=== PATIENT | male | born 1995 | race Caucasian/White ===

== ENCOUNTER 2022-03-05 04:01 | Emergency (ER) | payer OTHER, SELFPAY ==
--- NOTE | ~2022-03-05 | XR_ITS ---
EXAMINATION: XR HAND, RIGHT CLINICAL INFORMATION: Pain COMPARISON: None TECHNIQUE: PA, lateral, and oblique views of the right hand. FINDINGS: Osseous alignment is anatomic. No acute fracture is seen. No significant focal soft tissue abnormality identified. XR/XR hand RT min 3V IMPRESSION: No acute findings identified.
[2022-03-05 04:23] VITALS: BP 134/75; PULSE 75; RESP 20; O2SAT 97; BMI 38.0
--- NOTE | 2022-03-05 06:44 | ED.EXTPRO ---
HPI - Extremity Problem General Chief complaint: Extremity Injury, Upper Stated complaint: x ray needed Time Seen by Provider: 03/05/22 06:44 Source: patient Mode of arrival: ambulatory Limitations: no limitations History of Present Illness HPI Narrative: 27 year old male presents to the ED after hitting a door frame yesterday morning. He denies any other injuries. IT continued to hurt and was with flexion so he wanted to be seen. Related Data Allergies Allergy/AdvReac Type Severity Reaction Status Date / Time No Known Allergies Allergy Verified 03/05/22 04:27 Review of Systems Review of Systems: Review of systems: General:? Patient denies any fever chills recent illness or falls Musculoskeletal: Denies back pain or body aches or other injuries HEENT: denies headache, runny nose, ear pain Respiratory: denies shortness of breath, cough Cardiovascular: no chest pain or palpitations : denies dysuria, frequency Abdomen: no nausea vomiting denies abdominal pain? Extremities: no swelling, 5th knuckle pain Skin: no diaphoresis Yes all other systems are reviewed and are negative PMFSH Past Medical History Attestation statement: The following information was validated with the patient. Social History Social History Advance Directives: No Advance Directives Information Provided: Yes Physical Exam Vital Signs: Vital Signs: Last Vital Signs Pulse 75 03/05/22 04:23 Resp 20 03/05/22 04:23 BP 134/75 03/05/22 04:23 Pulse Ox 97 03/05/22 04:23 O2 Del Method 03/05/22 04:23 BMI result Body Mass Index 38.0 General: Well-appearing well-nourished in no signs of distress Extremities: Focused exam on the hand redness and tenderness to 5th digit. Full range of motion no pain to 5th metacarpal or phalanx no anatomical snuffbox tenderness Skin: Dry warm no rashes MDM - Extremity (Nontraumatic) MDM Narrative Medical decision making narrative: XR is unremarkable. Patient will go home with cold compresses and treat with tylenol and ibuprofen. Discharge Plan Discharge Clinical Impression: Contusion of hand, right Patient Disposition: Home, Self-Care Instructions: Contusion in Adults (ED) Additional Instructions: Please call to follow up with your doctor. If you have any other concerns please return to the ED.
== END 2022-03-05 06:59 | disposition home or self-care (01) ==
PROVIDERS: Emergency Provider Student in an Organized Health Care Education/Training Program
DX: S60.221A Contusion of right hand, initial encounter (principal); M79.641 Pain in right hand; Y29.XXXA Contact with blunt object, undetermined intent, initial encounter; Y93.9 Activity, unspecified; Y92.9 Unspecified place or not applicable; Y99.9 Unspecified external cause status
CPT/HCPCS: 73130; 99281; 99283

== ENCOUNTER → 2023-01-02 09:12 | Outpatient (REF) | payer OTHER, SELFPAY ==
--- NOTE | 2023-01-02 09:16 | ECG_ITS ---
Test Reason : check up Blood Pressure : / mmHG Vent. Rate : 071 BPM Atrial Rate : 071 BPM P-R Int : 132 ms QRS Dur : 094 ms QT Int : 380 ms P-R-T Axes : 032 054 044 degrees QTc Int : 412 ms Normal sinus rhythm Normal ECG No previous ECGs available Referred By: Ely Eaton Electronically Signed By:David Lozano
[2023-01-02 09:29] LABS: MANUAL DIFF FLAG NO
[2023-01-02 10:20] LABS: Basophils Percent Auto 0.3 % (0-2); Eosinophils Absolute Auto 0.1 X10*3/uL (0.0-0.4); Eosinophils Percent Auto 1.7 % (0-4); Hematocrit 45.3 % (42.0-52.0); Hemoglobin 15.2 g/dl (14.0-18.0); Imm Gran Abs Auto 0.01 X10*3/uL (0.00-0.03); Imm Gran Pct Auto 0.2 % (0.0-0.4); Lymphocytes Absolute Auto 1.9 X10*3/uL (1.2-4.9); Lymphocytes Percent Auto 33.3 % (20-40); Mean Corpuscular HGB Conc 33.6 g/dl (31.0-36.0); Mean Corpuscular Hemoglobin 28.5 pg (27.0-33.0); Monocytes Absolute Auto 0.6 X10*3/uL (0.1-1.2); Monocytes Percent Auto 9.5 % (2-11); Neutrophils Absolute Auto 3.2 x10*3/uL (2.0-8.3); Platelet Count 223 X10*3/uL (160-400); Red Blood Count 5.33 X10*6/uL (4.60-5.80); Red Cell Distribution Width 13.1 % (11.0-16.0); White Blood Count 5.8 X10*3/uL (4.8-10.8)
[2023-01-02 11:32] LABS: Alanine Aminotransferase 42 U/L (0-40); Albumin Level 4.9 g/dL (3.5-5.0); Alkaline Phosphatase 80 U/L (39-117); Anion Gap 13 (12-20); Aspartate Amino Transferase 23 U/L (5-37); Bilirubin Total 0.7 mg/dL (0.0-1.0); Blood Urea Nitrogen 14 mg/dL (9-16); Calcium 10.1 mg/dL (8.4-10.2); Carbon Dioxide 30 mmol/L (22-29); Chloride 103 mmol/L (96-108); Cholesterol 230 mg/dL; Estimated Glomerular Filt Rate > 60; Glucose Fasting 99 mg/dL (60-99); HDL Cholesterol 37 mg/dL; LDL Cholesterol Calculated 146 mg/dl; Potassium 4.7 mmol/L (3.3-5.1); Sodium 141 mmol/L (135-145); Total Protein 7.7 g/dL (6.5-8.0); Triglycerides 239 mg/dL
[2023-01-02 11:47] LABS: Folate 9.1 ng/mL (> or = 4.0); TSH reflex Free T4 2.08 uIU/mL (0.32-4.0); Vitamin B12 411 pg/mL (200-900); Vitamin D 25-OH Total 14.9 ng/mL (>30)
== END ==
LOC: HO.CARD 09:12
PROVIDERS: PCP Nurse Practitioner Family; Visit Provider Nurse Practitioner Family
DX: R07.9 Chest pain, unspecified (principal); Z76.89 Persons encountering health services in other specified circumstances; E55.9 Vitamin D deficiency, unspecified; F41.1 Generalized anxiety disorder; F32.A Depression, unspecified; E78.1 Pure hyperglyceridemia
CPT/HCPCS: 36415; 80053; 80061; 82306; 82607; 82746; 84443; 85025; 93005

== ENCOUNTER 2023-03-11 13:32 | Outpatient (AMB) | payer OTHER, SELFPAY ==
[2023-03-11 13:36] VITALS: BP 110/78; PULSE 97; O2SAT 96; BMI 36.5
--- NOTE | 2023-03-11 13:36 | MHC.PC.OV ---
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 Accompanied by: Self / Same As Patient Allergies No Known Allergies Allergy (Verified 03/11/23 13:36) Tobacco use date assessed: 03/11/23 Dental Screening Dental Screen Date: 03/11/23 Did you have a dental visit in the last 12 months?: No Did you have a dental problem in the last 6 months where you did not have access to dental care?: No Was dental information given to patient?: Patient has dentist HPI HPI Comments History of Present Illness Details 28-year-old male past medical history significant for hypertriglyceridemia, GERD, low vitamin-D, depression, anxiety, PTSD and corneal erosion of right eye follow-up by Dr. Pfeiffer in [place]. 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 Gutierrez. Patient states under MAC. Denies any previous complications to anesthesia. Denies chest pain, palpitations, shortness of breath and syncope. Most recent lab work and EKG unremarkable. Laboratory Tests 01/02/23 01/02/23 09:29 09:29 WBC 5.8 RBC 5.33 Hgb 15.2 Hct 45.3 MCV 85.0 MCH 28.5 MCHC 33.6 RDW 13.1 Plt Count 223 MPV 11.0 Immature Gran % (A uto) 0.2 Neut % (Auto) 55.0 Lymph % (Auto) 33.3 Bureau % (Auto) 9.5 Eos % (Auto) 1.7 Baso % (Auto) 0.3 Lymph # (Auto) 1.9 Bureau # (Auto) 0.6 Eos # (Auto) 0.1 Baso # (Auto) 0.0 Abs Immat Gran (au to) 0.01 Absolute Neuts (au to) 3.2 Absolute Nucleated RBC 0.000 Nucleated RBC % (a uto) 0.0 Sodium 141 Potassium 4.7 Chloride 103 Carbon Dioxide 30 H Anion Gap 13 BUN 14 Creatinine 1.03 Estimated GFR > 60 Fasting Glucose 99 Calcium 10.1 Total Bilirubin 0.7 AST 23 ALT 42 H Alkaline Phosphata se 80 Total Protein 7.7 Albumin 4.9 TSH 2.08 EKG December 2022: Normal sinus rhythm Normal ECG No previous ECGs available [facility] Medical History Encounter to establish care Surgical History H/O wisdom tooth extraction Family History Mother Alcohol abuse Father Diabetes Alcohol abuse Social History Housing: House Patient Tobacco Use Status: Never used Tobacco e-Cigarette/Vaping Use: Never Used service: Yes Current occupational status: employed Cognitive needs: No Hearing needs: No Vision needs: No Questionnaire PHQ-9 Over the last 2 weeks, how often have you been bothered by any of the following problems? 1. Little interest or pleasure in doing things: more than half the days 2. Feeling down, depressed, or hopeless: more than half the days 3. Trouble falling or staying asleep, or sleeping too much: several days 4. Feeling tired or having little energy: more than half the days 5. Poor appetite or overeating: several days 6. Feeling bad about yourself - or that you are a failure or have let yourself or your family down: more than half the days 7. Trouble concentrating on things, such as reading the newspaper or watching television: several days 8. Moving or speaking so slowly that other people could have noticed. Or the opposite - being so fidgety or restless that you have been moving around a lot more than usual: more than half the days 9. Thoughts that you would be better off or of hurting yourself in some way: several days (pt states not currently ) Total score: 14 Depression Screening Interpretation: Positive Source: Developed by Drs. Johny Calix, Madelaine Jamison, Reinier Graham and colleagues, with an educational dolores from [employer]. Thrive Questionnaire Date Thrive assessed: 03/11/23 I am a: Patient What is your living situation today?: I have a steady place to live Within the past 12 months, did the food you bought not last and you didn't have the money to get more?: Never true Within the past 12 months, did you worry whether your food would run out before you got money to buy more?: Never true Do you have trouble paying for medicines?: No Do you have trouble getting transportation to medical appointments?: No Do you have trouble paying your heating and electricity bill?: No Do you have trouble taking care of your child, family member or friend?: No Do you have trouble with day-to-day activities such as bathing, preparing meals, shopping, managing finances, etc.?: No Are you currently unemployed and looking for a job?: No Are you interested in more education?: No Please select the resources that you would like help with: None Currently or been in a relationship where the following occur: no concerns reported AUDIT C Alcohol Use Questionnaire (AUDIT-C) 1. How often do you have a drink containing alcohol?: 2-3 times a week 2. How many drinks containing alcohol do you have on a typical day when you are drinking?: 1 or 2 3. How often do you have six or more drinks on one occasion?: Never Total Score: 3 Score Reviewed/Action Taken: No BRUNA-7 AMB Questionnaire BRUNA-7 Date BRUNA - 7 assessed: 03/11/23 Feeling nervous, anxious, or on edge: 1 = Several days Not being able to stop or control worryin = Several days Worrying too much about different things: 0 = Not at all Trouble relaxin = Not at all Being so restless that it is hard to sit still: 0 = Not at all Becoming easily annoyed or irritable: 0 = Not at all Feeling afraid as if something awful might happen: 0 = Not at all Total BRUNA-7 score (0-4 normal; 5-9 mild; 10-14 moderate; 15-21 severe): 2 Source: Developed by Drs. Johny Calix, Madelaine Jamison, Reinier Graham and colleagues, with an educational dolores from [employer]. BRUNA-7 Assessment Billing BRUNA-7 Assessment Tool: BRUNA-7 Assessment 72057 Review of Systems Const Denies chills, Denies fatigue, Denies fever(s) and Denies poor appetite Eyes Denies no additional complaints ENT Reports Normal hearing present Card Denies chest pain, Denies syncope, Denies rapid heart rate and Denies dyspnea Resp Denies cough and Denies dyspnea GI Denies change in stool character, Denies constipation, Denies diarrhea, Denies nausea and Denies vomiting Denies dysuria, Denies urinary frequency and Denies urinary urgency Neuro Reports Normal hearing present, Denies confusion and Denies syncope Psych Denies confusion Endo Denies fatigue Physical exam (Primary Care) Vital Signs: Last Vital Signs Pulse 97 03/11/23 13:36 BP 110/78 03/11/23 13:36 Pulse Ox 96 03/11/23 13:36 Oxygen Delivery Method Room Air 03/11/23 13:36 BMI result Body Mass Index 36.5 Tobacco/Smoking Status: Tobacco use Status Tobacco use date assessed 03/11/23 03/11/23 13:43 Patient Tobacco Use Status Never used Tobacco 03/11/23 13:43 e-Cigarette/Vaping Use Never Used 03/11/23 13:43 PHQ-9: PHQ-9 Score PHQ-9: Total score 14 03/11/23 13:57 Depression Screening Interpretation: Positive Thrive Assessment: Date of Thrive Assessment Date Thrive assessed 03/11/23 03/11/23 13:43 Currently or been in a relationship where the following occur: no concerns reported Const General: No confusion Orientation/consciousness: No confusion HENMT Head: Yes normocephalic and Yes atraumatic Eyes Conjunctivae: conjunctivae normal Chest Chest palpation & inspection: normal inspection of the chest Resp Effort & Inspection: normal respiratory effort Auscultation: clear to auscultation bilaterally, no crackles, no rhonchi and no wheezes Cardio Rate: regular rate Rhythm: regular rhythm Heart sounds: S1 normal heart sound present and S2 normal heart sound present GI Inspection: Yes normal to inspection Neuro General: No confusion Cranial nerves: Yes Normal hearing present Extrem General: No edema Assessment and Plan Assessment & Plan (1) Preop examination: Code(s): Z01.818 - Encounter for other preprocedural examination Plan: Based on above examination, review most recent lab work and normal ECG, patient is of average risk to undergo scheduled eye surgery. No further workup is needed at this time and patient can proceed with surgery. Plan Keeo scheduled follow up with pcp. Coding Level of Care Code Est Pt Level 3 (49686) Diagnoses Preop examination Z01.818 Additional Codes BRUNA-7 Assessment Billing - BRUNA-7 Assessment Tool: BRUNA-7 Assessment 25465 ([id number])
== END 2023-03-11 13:57 | disposition home or self-care (01) ==
PROVIDERS: PCP Nurse Practitioner Family; Visit Provider Nurse Practitioner Family
DX: Z01.818 Encounter for other preprocedural examination (principal)
CPT/HCPCS: 99213